=== PATIENT | female | born 1975 | race Caucasian/White ===

== ENCOUNTER → 2018-08-06 09:20 | Outpatient (CLI) | payer OTHER, SELFPAY ==
[2018-08-06 13:05] LABS: Thyroid Stimulating Hormone 1.92 uIU/mL (0.47-4.68)
== END ==
PROVIDERS: Family Provider Nurse Practitioner Family; PCP Nurse Practitioner Family; Visit Provider Nurse Practitioner Family
DX: E03.9 Hypothyroidism, unspecified (principal)
CPT/HCPCS: 36415; 84443

== ENCOUNTER → 2020-03-14 11:44 | Outpatient (ROUT) | payer SELFPAY ==
[2020-03-14 12:00] LABS: Urine Drug Scr, Empl Non-NIDA See Separate Report
== END ==
PROVIDERS: Family Provider Nurse Practitioner Family; PCP Nurse Practitioner Family
DX: Z02.1 Encounter for pre-employment examination (principal)
CPT/HCPCS: 81099

== ENCOUNTER → 2023-08-24 14:06 | Outpatient (CLI) | payer OTHER, SELFPAY ==
--- NOTE | 2023-08-24 | DI.US.S_ITS ---
PROCEDURE: US PELVIC COMPLETE INDICATIONS: IUD PLACEMENT TECHNIQUE: Real-time scanning was performed of the pelvic organs, with image documentation. Additional endovaginal scanning was necessary due to incomplete visualization of the adnexal and endometrial structures by transabdominal scanning. COMPARISON: [facility], , PELVIC COMPLETE, 12/11/2014, 9:05. FINDINGS: Uterus: Uterus is anteverted and mildly enlarged in size at 10.5 x 6.8 x 7.4 cm. The myometrium is heterogeneous. The endometrium measures 5-6 mm combined thickness. The IUD is seen at its expected location. Hypoechoic uterine lesions are seen, which are attributed to fibroids. They measure as follows: Left anterior uterus, intramural, 1.8 x 1.5 x 1.7 cm Right posterior uterus, intramural, 4.1 x 3.2 x 5.6 cm Ovaries: The right ovary is not seen. The left ovary measures 2.6 x 3.6 x 2 cm, with a calculated ovarian volume of 9.8 cc. The left ovary is only seen transabdominally. Less than 12 follicles can be seen in the left ovary. No adnexal masses are seen. Other: No pathologic free abdominal or pelvic fluid. IMPRESSION: The IUD is seen at its expected location. Uterine fibroids can be seen. We strive to produce accurate, complete, and clear reports of imaging services. To assist us in improving patient care, this report was composed using standard report templates and voice recognition software. Therefore, it may contain abnormal punctuation, insertions and/or omissions. Occasional wrong-word or sound-alike substitutions may occur. Though we review the report and make efforts to correct it, we do recommend that the report be read carefully in proper context to recognize any text inaccuracies. Dictated by: Kamar Harvey M.D. on 08/24/2023 at 18:10 Approved by: Kamar Harvey M.D. on 08/24/2023 at 18:11
== END ==
PROVIDERS: Family Provider Nurse Practitioner Family; PCP Nurse Practitioner Family; Referring Provider Registered Nurse; Visit Provider Registered Nurse
DX: Z30.431 Encounter for routine checking of intrauterine contraceptive device (principal); D25.1 Intramural leiomyoma of uterus
CPT/HCPCS: 76830; 76856

== ENCOUNTER 2023-12-21 11:43 | Day surgery (SDC) | payer OTHER, SELFPAY ==
[2023-12-21 12:10] VITALS: BP 121/67; PULSE 67; RESP 16; TEMP 36.1; O2SAT 100
[2023-12-21] MEDS: LACTATED RINGERS 1,000 ML 42 ML IV (12:29)
--- NOTE | 2023-12-21 12:38 | PM.PREOP ---
Pre-operative Note COVID-19 COVID-19 status: Not tested Interval Note History & Physical reviewed/Exam performed by Physician: Yes Changes to H&P: No ASA Class (for procedural sedation): II
--- NOTE | 2023-12-21 13:06 | PM.OP.COLON ---
Operative Date/Time/Diagnoses Date of procedure: 12/21/23 Time of procedure: 13:06 Pre-op diagnosis: Positive fit test Post-op diagnosis: same Procedure & Clinicians Study performed: Colonoscopy Same procedure as scheduled: Yes Surgeon: Fuentes Ramirez Procedure Notes Procedure in detail: Surgeon: Fuentes Ramirez MD Anesthesia: Tiffani Augustine DO Procedure: The patient was brought to the endoscopy suite, placed in left lateral decubitus position. The patient was connected to monitoring devices. A time-out was performed. Sedation was administered. Once the patient was adequately sedated, a digital rectal exam was performed and was normal. The scope was then inserted and advanced to the cecum where the appendiceal orifice was identified and photographed. The scope was then slowly withdrawn over greater than 6 minutes. The terminal ileum was intubated and no abnormalities were noted. The colonic mucosa was thoroughly inspected. No abnormalities were identified. The scope was retroflexed in the rectum. Mild internal hemorrhoids were noted. The scope was straightened and removed. The patient was awakened and brought to recovery. Scope withdrawal time: 7 minutes Sedation time: 10 minutes EBL: 0 Findings: Mild internal hemorrhoids Post-procedure Recommendations: Colonoscopy in 10 years Disposition: PACU
[2023-12-21 13:08] VITALS: BP 94/49; PULSE 66; RESP 16; TEMP 36.2; O2SAT 98
[2023-12-21 13:13] VITALS: BP 105/65; PULSE 82; RESP 16; O2SAT 98
[2023-12-21 13:19] VITALS: BP 108/67; PULSE 68; RESP 15; O2SAT 98
[2023-12-21 13:21] VITALS: BP 109/67; PULSE 66; RESP 14; TEMP 36.2; O2SAT 97
== END 2023-12-21 13:30 | disposition home or self-care (01) ==
PROVIDERS: Family Provider Nurse Practitioner Family; PCP Internal Medicine; Referring Provider Surgery; Visit Provider Surgery
PROC: 0DJD8ZZ Inspection of Lower Intestinal Tract, Via Natural or Artificial Opening Endoscopic (ICD-10-PCS; CPT 45378; principal; 2023-12-21 12:30)
DX: Z12.11 Encounter for screening for malignant neoplasm of colon (principal); R19.5 Other fecal abnormalities; K64.8 Other hemorrhoids
CPT/HCPCS: 45378; J2704

== ENCOUNTER 2023-12-31 17:17 | Emergency (ER) | payer OTHER, SELFPAY ==
[2023-12-31 17:18] VITALS: BP 152/80; PULSE 66; RESP 16; TEMP 36.3; O2SAT 99
--- NOTE | 2023-12-31 17:30 | PC.NURSE ---
Addendum entered by Darlene Perze R.N. 12/31/23 17:31: Dr Shin states he will place orders Original Note: Dr Shin notified of patient in [place]. Orders placed
--- NOTE | 2023-12-31 17:32 | DI.CT.S_ITS ---
PROCEDURE: CT ANGIO HEAD AND NECK INDICATIONS: New onset neurologic symptoms TECHNIQUE: After the administration of intravenous contrast, 1 mm thick sections acquired from the aortic arch through the [place] of [place]. 3-dimensional qfqvqww-hsnrugzcm-hdquviczrt (MIP) and/or volume rendering reformats were acquired of the central intracranial vasculature and neck separately. For radiation dose reduction, the following was used: automated exposure control, adjustment of mA and/or kV according to patient size. COMPARISON: None. FINDINGS: Image quality: Diagnostic. BRAIN: CSF spaces: Ventricles are normal in size and shape. Basal cisterns are patent. No extra-axial fluid collections. Brain: No midline shift. No intracranial masses. No suspicious enhancement. Paredes-white matter interface appears intact. Skull and face: Calvarium and facial bones appear intact, without suspicious lesions. Orbits appear normal. Sinuses: Sinuses and mastoids are clear. HEAD CT ANGIOGRAPHY: Anterior circulation: Intracranial internal carotid arteries appear patent without high-grade stenosis. There is flow/opacification within the paired anterior cerebral arteries. There is opacification within the middle cerebral arteries. The anterior communicating artery is seen. No aneurysms are seen. No occlusion. Posterior circulation: Visualized portions of the vertebral arteries are patent and join to form a normal appearing basilar artery. No evidence for high-grade stenosis. No occlusions. There is opacification of the posterior cerebral arteries. No aneurysms are seen. NECK CT ANGIOGRAPHY: Carotid system: The great vessels demonstrate a conventional anatomy as they arise from the aortic arch. The origins of the common carotid arteries appear patent. The common carotid arteries appear patent throughout their visualized courses without high grade stenosis. The bifurcation regions are both patent without high grade stenosis. The internal carotid arteries demonstrate normal calibers and courses. Posterior circulation: The origins of the vertebral arteries both appear patent without hemodynamically significant stenosis. The more superior extracranial portions of both vertebral arteries also demonstrate normal courses and calibers. They join to form a normal appearing basilar artery. Soft tissues: Visualized neck soft tissues demonstrate no suspicious abnormalities. Bones: No suspicious bony lesions. Visualized cervical spine appears normally aligned. No acute compression fractures of the vertebral bodies. IMPRESSION: Negative CT angiogram of the intracranial and neck arterial vasculature. No high-grade stenosis, occlusion, dissection, or aneurysm seen. If there is persistent or high clinical suspicion for acute cerebrovascular ischemia/stroke, more sensitive evaluation with brain MRI can be considered. Any quantitative measurements of stenosis were performed using NASCET criteria. Dictated by: Brendan Zavala M.D. on 12/31/2023 at 18:42 Approved by: Brendan Zavala M.D. on 12/31/2023 at 18:44
--- NOTE | 2023-12-31 17:32 | DI.CT.S_ITS ---
PROCEDURE: CT HEAD/BRAIN WO CON INDICATIONS: New onset neurologic symptoms TECHNIQUE: Noncontrast 4.5 mm thick angled axial sections acquired from the foramen magnum to the vertex, with coronal and sagittal reformats. For radiation dose reduction, the following was used: automated exposure control, adjustment of mA and/or kV according to patient size. COMPARISON: None. FINDINGS: Image quality: Diagnostic. CSF spaces: Basal cisterns are patent. No extra-axial fluid collections. Ventricles are normal in size and shape. Brain: No midline shift. No intracranial masses or hemorrhage. Paredes-white matter interface is normal. Skull and face: Calvarium and visualized facial bones are intact, without suspicious lesions. Sinuses: Visualized sinuses and mastoids are clear. IMPRESSION: CT head without acute intracranial abnormalities. No mass or mass effect visualized. Dictated by: Brendan Zavala M.D. on 12/31/2023 at 18:41 Approved by: Brendan Zavala M.D. on 12/31/2023 at 18:41
[2023-12-31] MEDS: SODIUM CHLORIDE 0.9% 1,000 ML 1000 ML IV (17:47)
[2023-12-31 18:00] LABS: INR 1.2 (0.9-1.3); Prothrombin Time 13.8 SECONDS (9.4-12.5)
[2023-12-31 18:02] LABS: PTT Partial Thromboplastin Tim 37 SECONDS (25.1-36.5)
[2023-12-31 18:03] LABS: Add Manual Diff / Slide Review NO; Basophils Absolute Auto 100 /uL (0-100); Basophils Percent Auto 0.7 % (0-2); Eosinophils Absolute Auto 100 /uL (0-450); Eosinophils Percent Auto 1.3 % (2-4); Hematocrit 38.5 % (36-46); Hemoglobin 13.3 g/dL (12.0-16.0); Lymphocytes Absolute Auto 2400 /uL (1100-4500); Mean Corpuscular HGB Conc 34.4 % (30-36); Monocytes Absolute Auto 500 /uL (0-900); Monocytes Percent Auto 6.7 % (3-14); Neutrophils Absolute Auto 4600 /uL (1500-7000); Neutrophils Percent Auto 60.3 % (50-75); Platelet Count 268 X10^3/uL (150-400); Red Blood Cell Count 4.28 X10^6/uL (4.0-5.2); Red Cell Distribution Width 13.8 % (11.6-14.8); White Blood Cell Count 7.6 X10^3/uL (4.5-11.0)
[2023-12-31 18:06] LABS: Pregnancy Test Serum,Qual Negative (Negative)
[2023-12-31 18:07] LABS: Alanine Aminotransferase 16 IU/L (<35); Albumin 4.6 g/dL (3.5-5.0); Albumin Globulin Ratio 1.4 (1.0-2.8); Alkaline Phosphatase 104 U/L (38-126); Aspartate Aminotransferase 20 IU/L (14-36); BUN Creatinine Ratio 21.7 (6-22); Bilirubin Total 0.9 mg/dL (0.2-1.3); Blood Urea Nitrogen 15 mg/dL (7-17); Calcium 9.3 mg/dL (8.4-10.2); Carbon Dioxide 31 mmol/L (22-32); Chloride 105 mmol/L (98-107); Creatine Kinase 59 U/L (30-135); Estimated Glomerular Filt Rate > 60 mL/min (>60); Globulin 3.3 g/dL (1.7-4.1); Glucose 96 mg/dL (70-100); HEMOLYSIS < 15 (0-50); Lipase 66 U/L (23-300); Sodium 139 mmol/L (137-145); Total Protein 7.9 g/dL (6.3-8.2)
[2023-12-31 18:19] LABS: Troponin I < 0.012 ng/mL (0.01-0.034)
[2023-12-31 18:58] LABS: Thyroid Stimulating Hormone 2.88 uIU/mL (0.47-4.68)
--- NOTE | 2023-12-31 19:49 | PC.NURSE ---
The patient's significant other stated that the patient took 5 of her gabapentin today before lunch to treat her leg pain. She has an RX for gabapentin 100mg TID. She started taking this on 11/16/23. She expressed numbness in both hands and feet and left arm pain.
[2023-12-31 19:54] LABS: Ur Creatinine Normal (Normal); Ur Specific Gravity Normal (Normal); Urine Amphetamines Negative (Negative); Urine Barbiturates Negative (Negative); Urine Benzodiazepines Negative (Negative); Urine Cocaine Negative (Negative); Urine MDMA Negative (Negative); Urine Methadone Negative (Negative); Urine Methamphetamines Negative (Negative); Urine Opiates Negative (Negative); Urine Oxycodone Negative (Negative); Urine Phencyclidine Negative (Negative); Urine THC Negative (Negative); Urine Tricyclic Antidepressant Negative (Negative); Urine pH Normal (Normal)
[2023-12-31 20:00] LABS: Bacteria Urine Occasional (0-1); Culture Indicated Urine Cult Not Indicated; RBC Urine None Seen (0-5/HPF); Squamous Epithelial Cell Urine None Seen (0-5/HPF); Urine Volume 10mL (spun); WBC Urine 0-1/HPF (0-5/HPF)
[2023-12-31 20:20] VITALS: BP 134/60; PULSE 69; RESP 16; TEMP 36.6; O2SAT 98
[2023-12-31 20:33] VITALS: BP 126/63; PULSE 60; RESP 16; O2SAT 100
[2023-12-31 21:00] VITALS: BP 118/64; PULSE 60; RESP 16; O2SAT 98
--- NOTE | 2024-01-01 01:54 | ED_ITS ---
HPI - Neuro Symptoms/Deficit General Chief Complaint: Neuro Symptoms/Deficit Stated Complaint: Rt arm pain, feels really hot and like she's drunk Time Seen by Provider: 12/31/23 17:30 Source: patient Mode of arrival: Ambulatory History of Present Illness HPI Narrative: Patient left without seeing provider On Anticoagulants: No Related Data Home Medications Medication Instructions Recorded Confirmed levothyroxine 50 mcg capsule 50 mcg PO DAILY 12/05/21 12/21/23 propranolol 20 mg tablet 20 mg PO BID 11/23/23 12/21/23 fexofenadine 30 mg tablet 60 mg PO BID 12/21/23 12/21/23 gabapentin 100 mg capsule 100 mg PO 3XD 12/21/23 12/21/23 Allergies Allergy/AdvReac Type Severity Reaction Status Date / Time No Known Drug Allergies Allergy Verified 12/31/23 17:25 Review of Systems Hematologic/Lymphatic On Anticoagulants: No Patient History Medical History (Updated 12/31/23 @ 22:26 by Shy Alas RN) Anxiety Surgical History Status post tubal ligation Family History Grandfather Cancer Grandmother Hypertension Grandfather Cancer High cholesterol Social History Smoking Status: Never smoker alcohol intake: never Smoking Status: Never smoker Substance Use Type: does not use Exam Initial Vital Signs Initial Vital Signs: Vital Signs Temperature 97.4 F L 12/31/23 17:18 Pulse Rate 66 12/31/23 17:18 Respiratory Rate 16 12/31/23 17:18 Blood Pressure 152/80 H 12/31/23 17:18 Pulse Oximetry 99 12/31/23 17:18 Oxygen Delivery Method Room Air 12/31/23 17:18 Course Orders Ordered: ED Orders 12/31/23 17:32 CT angio head and neck Stat CT head/brain wo con Stat EKG-12 Lead Stat 12/31/23 17:44 Complete Blood Count AUTO DIFF Stat Comprehensive Metabolic Panel Stat Lipase Stat PTT Partial Thromboplastin [place] Stat Test Serum,Qual Stat Prothrombin Time INR Stat Thyroid Stimulating Hormone Stat Troponin & CK Cardiac Panel Stat 12/31/23 19:37 Urine Culture Stat Urine Drug Screen, Rapid Stat Urine Microscopic Stat Discontinued Medications Sodium Chloride (Normal Saline 0.9%) 1,000 mls @ 1,000 mls/hr IV BOLUS ONE Stop: 12/31/23 18:30 Last Infusion: 12/31/23 19:10 Dose: Infused Documented By: Infusion: 12/31/23 18:01 Dose: 1,000 mls/hr Documented By: Infusion: 12/31/23 17:48 Dose: 0 mls/hr Documented By: Admin: 12/31/23 17:47 Dose: 1,000 mls/hr Documented By: RAUL Vital Signs Vital signs: Vital Signs - 8 hr 12/31/23 20:20 12/31/23 20:33 12/31/23 21:00 Temperature 97.8 F Pulse Rate 69 60 60 Respiratory Rate 16 16 16 Blood Pressure 134/60 126/63 118/64 Pulse Oximetry 98 100 98 Oxygen Delivery Method Room Air Room Air Room Air MDM - Neuro Symptoms/Deficit Lab Data 12/31/23 17:44 12/31/23 17:44 Labs: Lab Results 12/31/23 12/31/23 Range/Units 17:44 19:37 WBC 7.6 (4.5-11.0) X10^3/uL RBC 4.28 (4.0-5.2) X10^6/uL Hgb 13.3 (12.0-16.0) g/dL Hct 38.5 (36-46) % MCV 90.0 (80-100) fL MCH 31.0 (26-34) PG MCHC 34.4 (30-36) % RDW 13.8 (11.6-14.8) % Plt Count 268 (150-400) X10^3/uL Neut % (Auto) 60.3 (50-75) % Lymph % (Auto) 31.0 (25-40) % [place] % (Auto) 6.7 (3-14) % Eos % (Auto) 1.3 L (2-4) % Baso % (Auto) 0.7 (0-2) % Neut # (Auto) 4600 (4393-5250) /uL Lymph # (Auto) 2400 (6718-9196) /uL [place] # (Auto) 500 (0-900) /uL Eos # (Auto) 100 (0-450) /uL Baso # (Auto) 100 (0-100) /uL PT 13.8 H (9.4-12.5) SECONDS INR 1.2 (0.9-1.3) APTT 37 H (25.1-36.5) SECONDS Sodium 139 (137-145) mmol/L Potassium 4.0 (3.4-5.1) mmol/L Chloride 105 (98-107) mmol/L Carbon Dioxide 31 (22-32) mmol/L BUN 15 (7-17) mg/dL Creatinine 0.69 (0.52-1.04) mg/dL Estimated GFR > 60 (>60) mL/min BUN/Creatinine Ratio 21.7 (6-22) Glucose 96 (70-100) mg/dL Calcium 9.3 (8.4-10.2) mg/dL Total Bilirubin 0.9 (0.2-1.3) mg/dL AST 20 (14-36) IU/L ALT 16 (<35) IU/L Alkaline Phosphatase 104 (38-126) U/L Total Creatine Kinase 59 (30-135) U/L Troponin I < 0.012 (0.01-0.034) ng/mL Total Protein 7.9 (6.3-8.2) g/dL Albumin 4.6 (3.5-5.0) g/dL Globulin 3.3 (1.7-4.1) g/dL Albumin/Globulin Ratio 1.4 (1.0-2.8) Lipase 66 (23-300) U/L TSH 2.88 (0.47-4.68) uIU/mL Serum , Qual Negative (Negative) Urine RBC None seen (0-5/HPF) Urine WBC 0-1/hpf (0-5/HPF) Ur Squamous Epith Cells None seen (0-5/HPF) Urine Bacteria Occasional (0-1) (None) Ur Culture Indicated? Cult not indicated Vol Urine Centrifuged 10ml (spun) U Opiates 300ng/mL cut Negative (Negative) Ur Oxycodone Screen Negative (Negative) Urine Methadone Screen Negative (Negative) Ur Barbiturates Screen Negative (Negative) U Tricyclic Antidepress Negative (Negative) Ur Phencyclidine Scrn Negative (Negative) Ur Amphetamines Screen Negative (Negative) U Methamphetamines Scrn Negative (Negative) Ur MDMA Scrn (Ecstasy) Negative (Negative) U Benzodiazepines Scrn Negative (Negative) Urine Cocaine Screen Negative (Negative) U Marijuana (THC) Screen Negative (Negative) Urine pH Normal (Normal) Urine Specific [place] Normal (Normal) Ur Creatinine Normal (Normal) Urine Dip Bedside Urine Glucose Negative Bedside Urine Bilirubin - Negative Bedside Urine Ketone - Negative Urine Specific [place] 1.005 Bedside Urine Occult Blood +/- Bedside Urine pH 6.5 Bedside Urine Protein - Negative Bedside Urine Urobilinogen - Negative Bedside Urine Nitrite - Negative Bedside Urine Leukocytes - Negative Esterase Discharge Plan Departure Patient Disposition: Left Without Being Seen Clinical Impression: Patient left without being seen Prescriptions: No Action levothyroxine 50 mcg capsule 50 mcg PO DAILY propranolol 20 mg tablet 20 mg PO BID fexofenadine 30 mg Tablet 60 mg PO BID gabapentin 100 mg capsule 100 mg PO 3XD
== END 2023-12-31 22:26 | disposition left against medical advice (07) ==
PROVIDERS: Emergency Medicine; Emergency Provider Emergency Medicine; Family Provider Nurse Practitioner Family; PCP Internal Medicine
DX: M79.601 Pain in right arm (principal); Z53.21 Procedure and treatment not carried out due to patient leaving prior to being seen by health care provider; R29.818 Other symptoms and signs involving the nervous system
CPT/HCPCS: 36415; 70450; 70496; 70498; 80053; 80305; 81003; 81015; 82550; 83690; 84443; 84484; 84703; 85025; 85610; 85730; 87086; 99284; Q9967

== ENCOUNTER → 2024-05-11 14:34 | Outpatient (CLI) | payer OTHER, SELFPAY ==
--- NOTE | 2024-05-11 14:35 | DI.RAD.S_ITS ---
PROCEDURE: XR CERVICAL SPINE 4V OR 5V INDICATIONS: Cervicalgia TECHNIQUE: Five views of the cervical spine were acquired. COMPARISON: None. FINDINGS: Cervical spine curvature and alignment: Normal. Bones: There are no osseous abnormalities. Disc spaces: Normal in height without significant degeneration. Intervertebral foramen: Grossly normal in width. Soft tissues: No soft tissue swelling, calcification or mass. IMPRESSION: Normal cervical spine. Dictated by: Nestor Resendiz M.D. on 05/12/2024 at 8:53 Approved by: Nestor Resendiz M.D. on 05/12/2024 at 8:54
== END ==
PROVIDERS: Family Provider Nurse Practitioner Family; PCP Internal Medicine; Referring Provider Internal Medicine; Visit Provider Internal Medicine
DX: M54.2 Cervicalgia (principal)
CPT/HCPCS: 72050

== ENCOUNTER → 2024-09-18 11:04 | Outpatient (CLI) | payer OTHER, SELFPAY ==
[2024-09-18 12:00] LABS: Influenza A - CEPHEID Flu A NEGATIVE (NEGATIVE); Influenza B - CEPHEID Flu B NEGATIVE (NEGATIVE); Respiratory Syncytial Virus Negative (Negative)
[2024-09-18 12:01] LABS: COVID-19 CEPHEID 4-PLEX PCR Negative (Negative)
== END ==
PROVIDERS: Family Provider Nurse Practitioner Family; PCP Internal Medicine; Visit Provider Nurse Practitioner Family
DX: J02.9 Acute pharyngitis, unspecified (principal)
CPT/HCPCS: 0241U; 87070